=== PATIENT | female | born 1985 | race Caucasian/White ===

== ENCOUNTER 2017-07-08 09:32 | Inpatient (IN) | payer OTHER ==
[2017-07-08] VITALS (7 sets, daily range): BP systolic 97–134; BP diastolic 58–87
[~2017-07-08] VITALS: Ht 162.5 cm; Wt 67.8 kg
--- NOTE | ~2017-07-08 | O ---
[place], [place] OPERATIVE NOTE NAME: TONO JUDD UNIT #: [id number] ROOM: 530 DOCTOR: ADORE TRAVISJANICE BIRTHDATE: [birth year] DOS: 07/10/2017 GASTRO-ENDOSCOPIC REPORT REPORT #1 HISTORY OF PRESENT ILLNESS: This is a 32-year-old patient who has presented with chief complaint of nonspecific ambiguous abdominal pain, associated nausea, vomiting, Associated constipation, diarrhea. She has been extensively studied including transvaginal ultrasound and no acute finding has been noticed. CT scan of the abdomen as well has been within normal limits. CBC differential, no leukocytosis. H and H of 12 and 36. Comprehensive metabolic has been unremarkable. The patient has been evaluated in the Emergency Room. PAST MEDICAL HISTORY: ADHD, bipolar disorder, TIA, nicotine dependency. PAST SURGICAL HISTORY: Vertebral artery dissection, hiatal hernia, Achilles tendon repair, hysterectomy, tonsillectomy. SOCIAL HISTORY: Smoker and social alcohol consumer. FAMILY HISTORY: Noncontributory. ALLERGIES: To no known medication. MEDICATIONS: List reviewed, has included naproxen and omeprazole 40 MG as well as others . PROCEDURE: Today's procedure part of investigation is panendoscopy and colonoscopy. PREMEDICATION: Versed and Diprivan. SCOPE: Olympus forward-viewing colonoscope 10L video. REPORT: After putting the patient in the left lateral position and after application of lubricant to the scope, the scope was introduced. Thereafter, under direct visualization, I advanced through the length of colon with some difficulty. Difficulty being secondary to tortuosity of the colon and sigmoid, hepatic and splenic flexure and presence of retained stool in the cecum and right colon. The scope was introduced, however, passed through the tortuous colon to cecum and no acute pathology was seen. Some inflammatory nonspecific tissue was randomly biopsied and I expect to notice nonspecific inflammatory response. The ileocecal valve was identified. Air was suctioned out. The patient was extubated, tolerated procedure well. IMPRESSION: Tortuous colon, status post random biopsy, ruling out collagenous or infiltrating disease of the colon. PLAN AND DISCUSSION: We are going to keep the patient on high fiber. We are [place], [place] OPERATIVE NOTE NAME: TONO JUDD UNIT #: [id number] ROOM: 530 DOCTOR: JANICE AVITIA MD BIRTHDATE: [birth year] going to consider management for irritable bowel syndrome, dicyclomine 10 mg daily is going to be given to see how she responds as far as nonspecific pain of the abdomen. Meanwhile, we are going to proceed with endoscopy of upper tract. The patient has been on naproxen. REPORT #2 INDICATIONS: The patient has presented with chief complaint of epigastric distress, dyspepsia, nausea. The patient has been on naproxen. The patient has been on omeprazole as well. PROCEDURE: Today's procedure part of investigation is panendoscopy plus biopsy and photographic series. PREMEDICATION: Versed and Diprivan. SCOPE: Olympus forward-viewing gastroscope Q10 video. REPORT: After putting the patient in the left lateral position and after application of lubricant to the scope, the scope was introduced. Thereafter, under direct visualization, I advanced through the length of the esophagus without difficulty. Esophagus, cervicothoracic distally carefully examined. Gastric pouch was entered. Gastritis, particularly at antrum was identified. This appears to be secondary to nonsteroidal anti-inflammatory. Antral biopsy obtained after photographic series Duodenal bulb, second and third part within normal limits. The patient extubated, tolerated procedure well. IMPRESSION: Gastritis secondary to nonsteroidal anti-inflammatory. PLAN AND DISCUSSION: Continuation with omeprazole 40 mg daily, making the naproxen only at times that she has full stomach or can consume the medication along with a Gaviscon tablet to prevent further local damage to the tissue. Supportive management in general. We think that this patient may have IBS. If her symptomatology continuous, at such a time we may consider small bowel follow through and barium study. [place], [place] OPERATIVE NOTE NAME: TONO JUDD UNIT #: [id number] ROOM: 530 DOCTOR: JANICE AVITIA MD BIRTHDATE: [birth year] JANICE AVITIA MD CM:OPRECORD:OPERATIVE NOTE [id number] JANICE AVITIA MD 07/17/17 1035 interface
[2017-07-08] MEDS ORDERED: LAMICTAL CD5 MG PO (09:44)
[2017-07-08] MEDS ORDERED: TRAZODONE50 MG PO (09:45)
[2017-07-08] MEDS ORDERED: VYVANSE40 MG PO (09:46)
[2017-07-08] MEDS ORDERED: EC NAPROSYN,NA500 MG PO (09:47)
[2017-07-08] MEDS ORDERED: OMEPRAZOLE40 MG PO (09:48)
[2017-07-08 10:38] LABS: BASO % 0.3 % (0.0-1.0); EOS # 0.2 10*3/uL (0.0-0.4); EOS % 3.5 % (1.0-4.0); HEMATOCRIT 36.5 % (37.0-47.0); HEMOGLOBIN 12.8 g/dl (12.0-16.0); LYMPH # 1.4 10*3/uL (1.3-4.4); LYMPH % 23.4 % (27.0-41.0); MEAN CELL VOLUME 92.6 fl (81.0-99.0); MEAN CORPUSCULAR HGB 32.5 pg (27.0-31.0); MEAN CORPUSCULAR HGB CONC 35.1 g/dl (33.0-37.0); MEAN PLATELET VOLUME 9.5 fl (9.6-12.3); MONO # 0.4 10*3/uL (0.1-1.0); MONO % 6.7 % (3.0-9.0); NEUT # 3.9 10*3/uL (2.3-7.9); NEUT % 65.8 % (47.0-73.0); PLATELET COUNT AUTOMATED 178 10*3/uL (130-400); RED BLOOD COUNT 3.94 10*6/uL (4.10-5.10); RED CELL DISTRI WIDTH 12.3 % (0-14.5); WHITE BLOOD COUNT 5.9 10*3/uL (4.8-10.8)
[2017-07-08 10:51] LABS: BILIRUBIN NEGATIVE (NEGATIVE); BLOOD NEGATIVE (NEGATIVE); CLARITY SL CLOUDY (CLEAR); COLOR YELLOW (YELLOW); GLUCOSE NEGATIVE (NEGATIVE); KETONE NEGATIVE (NEGATIVE); LEUKO ESTERASE NEGATIVE (NEGATIVE); NITRITE NEGATIVE (NEGATIVE); PH 8.5 (5.0-9.0); SPECIFIC GRAVITY 1.015 (1.005-1.030); UROBILINOGEN 0.2 E.U./dl (0.2-1.0)
[2017-07-08 10:54] LABS: ALBUMIN 4.2 gm/dl (3.1-4.5); ALKALINE PHOSPHATASE 40 U/L (45-117); BUN 9 mg/dl (7-24); CHLORIDE 103 mmol/L (98-107); CREATININE 0.76 mg/dL (0.55-1.02); POTASSIUM 3.8 mmol/L (3.5-5.1); SGOT/AST 9 IU/L (3-35); SGPT/ALT 13 U/L (12-78); SODIUM 138 mmol/L (136-145); TOTAL PROTEIN 6.7 gm/dL (6.4-8.2)
[2017-07-08 11:05] LABS: BACTERIA TRACE; MUCOUS TRACE
--- NOTE | 2017-07-08 11:07 | NUR ---
PATIENT RATES PAIN A 9/10 BEFORE TORADOL. STATES THAT THE TORADOL HAS NOT HELPED WITH THE PAIN. PATIENT DISCONNECTED TO GO TO RESTROOM AND RECONNECTED TO [facility].
--- NOTE | 2017-07-08 12:17 | NUR ---
PATIENTS BP 103/59 AB. [employer] CUSTOMER ASSISTANCE REPRESENTATIVE NOTIFIED AT THIS TIME. STATES TO GIVE HALF OF MORPHINE AT THIS TIME 2MG AND THEN THE OTHER 2MG AFTER 15 MINUTES PER GPOOD BP.
--- NOTE | 2017-07-08 12:40 | NUR ---
PATIENT BP 97/63 PAM EARLY CHILDHOOD EDUCATION SPECIALIST NOTIFIED. 1MG OF MORPHINE HAS BEEN WASTED AT THIS TIME WITNESSED BY PAULINA CONDE RN.
--- NOTE | 2017-07-08 15:38 | NUR ---
REPORT GIVEN TO GERARD RN AT THIS TIME. MARYURI MARTINEZ TO TRANSPORT PATIENT TO 5TH FLOOR ROOM.
--- NOTE | 2017-07-08 16:26 | NUR ---
A 32, admitted to 5E, under the services of ESPINOZA Arias DO with a diagnosis of ABDOMINAL PAIN. Chief complaint is ABDOMINAL PAIN IN LLQ. Patient arrived via stretcher from ER. Monitor applied. Initial assessment completed. Vital signs taken and recorded. ESPINOZA ARIAS DO notified of admission to the unit. Orders received. See assessment for past medical history, medications and allergies. Patient and/or family oriented to unit. [facility] visitation policy reviewed. Clothing/patient valuable form completed. ETHAN OWUSU
--- NOTE | 2017-07-08 16:50 | NUR ---
PT REQUESTED PAIN MEDICATION FOR LLQ ABDOMINAL PAIN. RATES PAIN AT 6 OUT OF 10 AND IS SHARP AND CONSTANT.
[2017-07-08] MEDS ORDERED: LAMICTAL200 MG PO (17:24)
--- NOTE | 2017-07-08 17:42 | NUR ---
PT REPORTS DECREASE IN PAIN. PAIN MEDICATION EFFECTIVE.
--- NOTE | 2017-07-08 18:03 | NUR ---
CALLED FOR CONSULT. HE WILL CALL BACK FOR INFORMATION.
--- NOTE | 2017-07-08 18:16 | NUR ---
DR. AVITIA CALLED REGARDING CONSULT. NEW ORDERS OBTAINED. SEE MESSAGE.
--- NOTE | 2017-07-08 20:20 | NUR ---
PT REQUEST THAT DIET BE ADVANCED FROM FULL LIQUID AT THIS TIME. DR. CAREY AND DR. AVITIA NOTIFIED AND AWARE. BOTH PHYSICIANS DECLINED TO ADVANCE DIET AT THIS TIME. PT AWARE, GIVEN OPTIONS FOR FULL LIQUID DIET AT THIS TIME.
--- NOTE | 2017-07-08 22:05 | NUR ---
PT C/O ABDOMINAL PAIN. NORCO 5/325 MG TABLET ADMINISTERED PO. WILL MONITOR FOR EFFECTIVNESS. CALL LIGHT IN REACH.
--- NOTE | 2017-07-08 23:05 | NUR ---
MESERETCO EFFECTIVE PER PT. PT RESTING IN BED, CALL LIGHT IN REACH.
[2017-07-09] VITALS: BP 85/55
--- NOTE | 2017-07-09 00:50 | NUR ---
PT C/O ABDOMINAL PAIN, RATING IT AT 7/10. MORPHINE SULFATE 2 MG ADMINISTERED VIA IV AT THIS TIME. WILL MONITOR FOR EFFECTIVENESS. CALLL LIGHT IN REACH.
--- NOTE | 2017-07-09 01:50 | NUR ---
MORPHINE EFFECTIVE PER PT. RESTING PEACEFULLY IN BED, CALL LIGHT IN REACH.
--- NOTE | 2017-07-09 04:24 | NUR ---
PT C/O ABDOMINAL PAIN. NORCO 5/325 MG TAB ADMINISTERED PO. WILL MONITOR FOR EFFECTIVENESS. CALL LIGHT IN REACH.
--- NOTE | 2017-07-09 04:59 | NUR ---
24 HR chart check completed.
[2017-07-09 05:55] LABS: BASO % 0.3 % (0.0-1.0); EOS # 0.2 10*3/uL (0.0-0.4); EOS % 6.3 % (1.0-4.0); HEMATOCRIT 33.5 % (37.0-47.0); HEMOGLOBIN 11.5 g/dl (12.0-16.0); LYMPH # 1.8 10*3/uL (1.3-4.4); LYMPH % 47.4 % (27.0-41.0); MEAN CORPUSCULAR HGB 32.9 pg (27.0-31.0); MEAN CORPUSCULAR HGB CONC 34.3 g/dl (33.0-37.0); MEAN PLATELET VOLUME 9.5 fl (9.6-12.3); MONO # 0.3 10*3/uL (0.1-1.0); MONO % 7.8 % (3.0-9.0); NEUT # 1.5 10*3/uL (2.3-7.9); NEUT % 37.9 % (47.0-73.0); PLATELET COUNT AUTOMATED 154 10*3/uL (130-400); RED CELL DISTRI WIDTH 12.6 % (0-14.5); WHITE BLOOD COUNT 3.8 10*3/uL (4.8-10.8)
[2017-07-09 05:57] LABS: MEAN CELL VOLUME 95.7 fl (81.0-99.0)
[2017-07-09 06:21] LABS: ALBUMIN 3.1 gm/dl (3.1-4.5); ALKALINE PHOSPHATASE 34 U/L (45-117); BUN 4 mg/dl (7-24); CHLORIDE 110 mmol/L (98-107); CHOLESTEROL 68 mg/dL (<200); CREATININE 0.78 mg/dL (0.55-1.02); FREE T4 1.12 ng/dl (0.76-1.46); HDL CHOLESTEROL 36 mg/dl (40-60); LDL CHOLESTEROL 17 mg/dL (9-159); PHOSPHOROUS 3.1 mg/dL (2.5-4.9); POTASSIUM 3.6 mmol/L (3.5-5.1); SGOT/AST 7 IU/L (3-35); SGPT/ALT 13 U/L (12-78); SODIUM 143 mmol/L (136-145); TOTAL PROTEIN 5.1 gm/dL (6.4-8.2); TRIGLYCERIDES 77 mg/dl (<150); VLDL CHOLESTEROL 15 mg/dL (6-40)
[2017-07-09 06:42] LABS: VITAMIN D, 25-HYDROXY 39.8 ng/mL (30-100)
[2017-07-09 08:00] VITALS: BP 92/53
--- NOTE | 2017-07-09 08:10 | NUR ---
NAPROXEN 500MG GIVEN PER PATIENT REQUEST FOR A HEADACHE RATING 3/10. ONLY OTHER COMPLAINTS IS THAT SHE DOES NOT LIKE HER LIQUID DIET. BED IS IN LOW POSITION. CALL LIGHT IS WITHIN REACH.
--- NOTE | 2017-07-09 08:19 | NUR ---
NOTIFIED DR AVIITA OF LAB RESULTS. NEW ORDERS RECEIVED.
--- NOTE | 2017-07-09 08:30 | NUR ---
[employer] Technician in to talk to patient. Patient states lives at HOME with HER AND FAMILY. There are 12 steps in the home. Physician: GUERRERO ALMODOVAR [facility] Pharmacy: [facility] Home health services: NONE Patient's level of ADLs: INDEPENDENT Patient has working utilities: YES DME: NONE Follow-up physician's appointment after d/c: WILL BE MADE PRIOR TO DC Does patient want to access PORTAL?: Discharge plan HOME. AIDA ONEIL
--- NOTE | 2017-07-09 10:39 | NUR ---
NAPROXEN NOT EFFECTIVE. NORCO 5/325 GIVEN FOR A HEADACHE RATING A 6/10.
--- NOTE | 2017-07-09 11:50 | NUR ---
NORCO NOT EFFECTIVE. TORADOL 30MG AND REGLAN 10 MG GIVEN ORDERED FOR A HEADACHE RATING A 7/10.
[2017-07-09 12:00] VITALS: BP 91/55
--- NOTE | 2017-07-09 12:50 | NUR ---
NO COMPLAINTS OF HEADACHE. TORADOL AND REGLAN EFFECTIVE.
[2017-07-09 16:00] VITALS: BP 92/59
--- NOTE | 2017-07-09 18:15 | NUR ---
ZOFRAN 4MG IV GIVEN FOR ABDOMINAL DISCOMFORT.
[2017-07-09 20:00] VITALS: BP 117/55
--- NOTE | 2017-07-09 20:09 | NUR ---
PT ADMINISTERED NORCO 5/325 MG TABLET PO FOR C/O ABDOMINAL PAIN, RATING IT A 6/10. WILL MONITOR FOR EFFECTIVENESS. CALL LIGHT IN REACH.
--- NOTE | 2017-07-09 21:09 | NUR ---
NORCO EFFECTIVE PER PT. PT RESTING IN BED AT THIS TIME. CALL LIGHT IN REACH.
[2017-07-10] VITALS (7 sets, daily range): BP systolic 92–127; BP diastolic 54–75
--- NOTE | 2017-07-10 01:30 | NUR ---
PT C/O NAUSEA. ZOFRAN VIA IV GIVEN AT THIS TIME. WILL MONTIOR FOR EFFECTIVENESS. CALL LIGHT IN REACH.
--- NOTE | 2017-07-10 01:48 | NUR ---
MORPHINE EFFECTIVE PER PT. NO C/O PAIN. CALL LIGHT IN REACH.
--- NOTE | 2017-07-10 01:48 | NUR ---
PT C/O ABDOMINAL PAIN. RATES PAIN 8/10. MORPHINE GIVEN VIA IV. WILL MONITOR FOR EFFECTIVENESS. PT LYING IN BED AT THIS TIME. ALL SAFETY MEASURES IN PLACE, CALL LIGHT IN REACH.
--- NOTE | 2017-07-10 02:22 | NUR ---
24 HR chart check completed.
--- NOTE | 2017-07-10 02:30 | NUR ---
ZOFRAN EFFECTIVE. NO FURTHER C/O NAUSEA AT THIS TIME. RESTING PEACEFULLY, CALL LIGHT IN REACH.
--- NOTE | 2017-07-10 06:08 | NUR ---
PT REPORTED STOOL IS "LOOSE, DUST-LIKE". FLEETS ENEMA SELF ADMINISTERD BY PT PER ORDER. SEE MAR.
--- NOTE | 2017-07-10 06:30 | NUR ---
PT. HAD CLOUDY YELLOW BROWN LIQUID WITH BROWN SEDIMENT. PT. SAID SHE FELT LIKE SHE HAD TO GO AGAIN. WILL RECHECK.
--- NOTE | 2017-07-10 06:50 | NUR ---
UP TO BATHROOM AGAIN STOOL MORE CLEAR WITH SMALL LOOSE BROWN STOOL SEDIMENT NOTED. PT. AWARE OF NEED TO HAVE TAP WATER ENEMA AND IS OKAY WITH THIS.
--- NOTE | 2017-07-10 07:48 | NUR ---
Shift chart check completed.
[2017-07-10 08:12] LABS: BASO % 0.4 % (0.0-1.0); EOS # 0.3 10*3/uL (0.0-0.4); HEMATOCRIT 34.5 % (37.0-47.0); HEMOGLOBIN 11.5 g/dl (12.0-16.0); LYMPH # 1.6 10*3/uL (1.3-4.4); LYMPH % 29.8 % (27.0-41.0); MEAN CELL VOLUME 96.1 fl (81.0-99.0); MEAN CORPUSCULAR HGB CONC 33.3 g/dl (33.0-37.0); MEAN PLATELET VOLUME 10.3 fl (9.6-12.3); MONO # 0.4 10*3/uL (0.1-1.0); MONO % 6.7 % (3.0-9.0); NEUT % 57.7 % (47.0-73.0); PLATELET COUNT AUTOMATED 157 10*3/uL (130-400); RED BLOOD COUNT 3.59 10*6/uL (4.10-5.10); RED CELL DISTRI WIDTH 12.5 % (0-14.5); WHITE BLOOD COUNT 5.2 10*3/uL (4.8-10.8)
[2017-07-10 08:41] LABS: ALKALINE PHOSPHATASE 37 U/L (45-117); BUN 3 mg/dl (7-24); CHLORIDE 110 mmol/L (98-107); LIPASE 106 U/L (73-393); POTASSIUM 4.2 mmol/L (3.5-5.1); SGOT/AST 15 IU/L (3-35); SGPT/ALT 20 U/L (12-78); SODIUM 143 mmol/L (136-145); TOTAL PROTEIN 5.2 gm/dL (6.4-8.2)
--- NOTE | 2017-07-10 10:15 | NUR ---
PATIENT WAS GIVEN 500ML TAP WATER ENEMA TO PREPARE FOR PROCEDURE. PATIENT WAS STILL HAVING EPISODES OF DARKENED STOOL.
--- NOTE | 2017-07-10 11:10 | NUR ---
PRN MORPHINE GIVEN FOR C/O OF ABDOMINAL PAIN. WILL LENOTR.
--- NOTE | 2017-07-10 11:45 | NUR ---
MORPHINE EFFECTIVE. PATIENT HAS NO C/O ABDOMINAL PAIN OR DISCOMFORT.
[2017-07-10] MEDS ORDERED: DICYCLOMINE HCL10 MG PO (14:14)
[2017-07-10] MEDS ORDERED: NATURE'S BLEND F1 MG PO (14:14)
--- NOTE | 2017-07-10 14:43 | NUR ---
REPORT TAKEN FROM SURGERY.
--- NOTE | 2017-07-10 15:48 | NUR ---
Discharge instructions reviewed with patient/family. Patient receptive and verbalizes understanding. Follow-up care arranged. Written instructions given to patient/family. Patient ambulated from unit at time of discharge. DOMONIQUE SANDOVAL
== END 2017-07-10 15:48 | disposition home or self-care (01) | DRG 392 ==
LOC: ED 09:32 → 5E 15:05 → EDHOLD 15:05 → 5E 15:20
PROVIDERS: Emergency Medicine; Internal Medicine; Nurse Practitioner; ADMIT Internal Medicine
PROC: 0DBE8ZX Excision of Large Intestine, Via Natural or Artificial Opening Endoscopic, Diagnostic (ICD-10-PCS; principal; 2017-07-10)
PROC: 0DB68ZX Excision of Stomach, Via Natural or Artificial Opening Endoscopic, Diagnostic (ICD-10-PCS; 2017-07-10)
DX: K29.70 Gastritis, unspecified, without bleeding (principal); D72.810 Lymphocytopenia; E66.3 Overweight; F17.210 Nicotine dependence, cigarettes, uncomplicated; G43.909 Migraine, unspecified, not intractable, without status migrainosus; T39.395A Adverse effect of other nonsteroidal anti-inflammatory drugs [NSAID], initial encounter; F31.9 Bipolar disorder, unspecified; F90.9 Attention-deficit hyperactivity disorder, unspecified type; K21.9 Gastro-esophageal reflux disease without esophagitis; Z71.6 Tobacco abuse counseling; Z68.27 Body mass index [BMI] 27.0-27.9, adult; Z86.73 Personal history of transient ischemic attack (TIA), and cerebral infarction without residual deficits; Z90.710 Acquired absence of both cervix and uterus; Z82.49 Family history of ischemic heart disease and other diseases of the circulatory system; Z79.899 Other long term (current) drug therapy; Y92.89 Other specified places as the place of occurrence of the external cause

== ENCOUNTER 2019-03-22 20:16 | Emergency (ER) | payer MEDICAID ==
[~2019-03-22] VITALS: Ht 162.5 cm; Wt 63.5 kg
--- NOTE | ~2019-03-22 | EKG ---
[place], [place] ELECTROCARDIOGRAM REPORT NAME: TONO JUDD UNIT #: [id number] ROOM: DOCTOR: EPIPHANY DRAFT REPORT BIRTHDATE: [birth year] [facility] Test Date: 2019-03-22 Test Time: 20:41:13 Pat Name: TONO JUDD Department: Room: Gender: F Straightening Machine Operator: Alessia Gonzales : 1985 Requested By: EMIR OVALLE Order Number: [id number] Reading MD: Jose Miguel Washington MD Measurements Intervals [place] Rate: 77 P: 28 [place]: 137 QRS: 76 QRSD: 90 T: 41 QT: 366 QTc: 415 Interpretive Statements Sinus rhythm Atrial premature complex Electronically Signed On 03-29-2019 4:02:21 PDT by Jose Miguel Washington MD CM:EKGRPT:ELECTROCARDIOGRAM REPORT 40 EMIR OVALLE MD EPIPHANY DRAFT REPORT EMIR OVALLE MD
[~2019-03-22 20:16] MED LIST: DICYCLOMINE HCL10 MG PO; EC NAPROSYN,NA500 MG PO; LAMICTAL CD5 MG PO; LAMICTAL200 MG PO; NATURE'S BLEND F1 MG PO; OMEPRAZOLE40 MG PO; TRAZODONE50 MG PO; VYVANSE40 MG PO
[2019-03-22 20:52] LABS: BASO % 0.2 % (0.0-1.0); EOS # 0.2 10*3/uL (0.0-0.4); EOS % 3.8 % (1.0-4.0); HEMATOCRIT 37.8 % (37.0-47.0); HEMOGLOBIN 12.8 g/dl (12.0-16.0); LYMPH # 1.7 10*3/uL (1.3-4.4); LYMPH % 34.4 % (27.0-41.0); MEAN CELL VOLUME 97.2 fl (81.0-99.0); MEAN CORPUSCULAR HGB 32.9 pg (27.0-31.0); MEAN CORPUSCULAR HGB CONC 33.9 g/dl (33.0-37.0); MEAN PLATELET VOLUME 9.8 fl (9.6-12.3); MONO # 0.4 10*3/uL (0.1-1.0); NEUT # 2.6 10*3/uL (2.3-7.9); NEUT % 53.2 % (47.0-73.0); PLATELET COUNT AUTOMATED 180 10*3/uL (130-400); RED BLOOD COUNT 3.89 10*6/uL (4.10-5.10); RED CELL DISTRI WIDTH 12.2 % (0-14.5)
[2019-03-22 21:03] LABS: ACT PARTIAL THROMBO TIME 25.9 SECONDS (20.0-32.1)
[2019-03-22 21:06] LABS: ALBUMIN 3.6 gm/dl (3.1-4.5); ALKALINE PHOSPHATASE 43 U/L (45-117); BUN 10 mg/dl (7-24); CHLORIDE 109 mmol/L (98-107); CREATININE 0.87 mg/dL (0.55-1.02); POTASSIUM 3.8 mmol/L (3.5-5.1); SGOT/AST 11 IU/L (3-35); SGPT/ALT 16 U/L (12-78); SODIUM 143 mmol/L (136-145); TOTAL PROTEIN 6.2 gm/dL (6.4-8.2)
[2019-03-22 21:09] LABS: BETA-HCG, QUANT < 1.0 mIU/mL (1-3)
== END 2019-03-22 22:55 | disposition short-term general hospital (02) ==
LOC: ED 20:16
PROVIDERS: Emergency Medicine Emergency Medical Services
DX: R51 Headache (principal); R20.2 Paresthesia of skin; R11.0 Nausea; M79.602 Pain in left arm; R29.898 Other symptoms and signs involving the musculoskeletal system; K21.9 Gastro-esophageal reflux disease without esophagitis; F17.200 Nicotine dependence, unspecified, uncomplicated; Z86.73 Personal history of transient ischemic attack (TIA), and cerebral infarction without residual deficits; Z79.899 Other long term (current) drug therapy

== ENCOUNTER 2019-05-09 14:51 | Emergency (ER) | payer OTHER ==
[~2019-05-09] VITALS: Ht 160 cm; Wt 63.5 kg
[2019-05-09 15:30] LABS: BILIRUBIN NEGATIVE (NEGATIVE); BLOOD NEGATIVE (NEGATIVE); CLARITY CLEAR (CLEAR); COLOR YELLOW (YELLOW); GLUCOSE NEGATIVE (NEGATIVE); KETONE 1+ (NEGATIVE); LEUKO ESTERASE NEGATIVE (NEGATIVE); NITRITE NEGATIVE (NEGATIVE)
[2019-05-09 15:33] LABS: BASO % 0.2 % (0.0-1.0); EOS # 0.2 10*3/uL (0.0-0.4); EOS % 3.7 % (1.0-4.0); HEMATOCRIT 37.8 % (37.0-47.0); HEMOGLOBIN 12.8 g/dl (12.0-16.0); LYMPH # 1.4 10*3/uL (1.3-4.4); LYMPH % 26.8 % (27.0-41.0); MEAN CELL VOLUME 95.7 fl (81.0-99.0); MEAN CORPUSCULAR HGB 32.4 pg (27.0-31.0); MEAN CORPUSCULAR HGB CONC 33.9 g/dl (33.0-37.0); MEAN PLATELET VOLUME 9.5 fl (9.6-12.3); MONO # 0.4 10*3/uL (0.1-1.0); MONO % 7.4 % (3.0-9.0); NEUT # 3.2 10*3/uL (2.3-7.9); NEUT % 61.7 % (47.0-73.0); PLATELET COUNT AUTOMATED 163 10*3/uL (130-400); RED BLOOD COUNT 3.95 10*6/uL (4.10-5.10); WHITE BLOOD COUNT 5.1 10*3/uL (4.8-10.8)
[2019-05-09 15:49] LABS: ALKALINE PHOSPHATASE 44 U/L (45-117); BUN 9 mg/dl (7-24); CHLORIDE 107 mmol/L (98-107); CREATININE 0.96 mg/dL (0.55-1.02); LIPASE 139 U/L (73-393); SGOT/AST < 3 IU/L (3-35); SGPT/ALT 12 U/L (12-78); SODIUM 140 mmol/L (136-145); TOTAL PROTEIN 6.7 gm/dL (6.4-8.2)
[2019-05-09] MEDS ORDERED: ANUSOL HC30 GM PO (15:55)
[2019-05-09] MEDS ORDERED: PRILOSEC20 M1 PO (15:55)
[2019-05-09 16:04] LABS: EPITHELIAL CELLS 31-40; MUCOUS 2+
[2019-05-09 16:05] LABS: BACTERIA TRACE; WBC 0-2 wbc/hpf (0-5)
[2019-05-09] MEDS ORDERED: COLACE100 MG PO (16:37)
== END 2019-05-09 16:36 | disposition home or self-care (01) ==
LOC: ED 14:51
PROVIDERS: Physician Assistant
DX: K59.00 Constipation, unspecified (principal); K64.4 Residual hemorrhoidal skin tags; R10.13 Epigastric pain; K21.9 Gastro-esophageal reflux disease without esophagitis; Z79.899 Other long term (current) drug therapy; Z90.710 Acquired absence of both cervix and uterus